=== PATIENT | male | born 1950 | race Two or more races ===

== ENCOUNTER 2019-07-26 14:24 | Inpatient (IN) | payer MEDICARE, OTHER ==
[~2019-07-26] VITALS: Ht 175.3 cm; Wt 93.9 kg
[2019-07-26 15:02] LABS: BASOPHILS % (AUTO) 0.4 % (0.0-2.0); EOSINOPHILS # (AUTO) 0.1 K/uL (0.0-0.7); EOSINOPHILS % (AUTO) 1.4 % (0.0-7.0); HEMATOCRIT 27.7 % (36.7-47.1); HEMOGLOBIN 9.2 g/dL (12.5-16.3); LYMPHOCYTES # (AUTO) 1.1 K/uL (20.0-40.0); LYMPHOCYTES % (AUTO) 17.4 % (20.5-51.5); MEAN CORPUSCULAR HEMOGLOBIN 30.9 uug (23.8-33.4); MEAN CORPUSCULAR HGB CONC 33 g/dL (32.5-36.3); MEAN CORPUSCULAR VOLUME 93.2 fL (73.0-96.2); MONOCYTES # (AUTO) 0.4 K/uL (2.0-10.0); MONOCYTES % (AUTO) 6.1 % (0.0-11.0); NEUTROPHILS # (AUTO) 4.6 K/uL (1.8-8.9); NEUTROPHILS % (AUTO) 74.7 % (38.5-71.5); PLATELET COUNT (AUTO) 158 K/uL (152-348); RED BLOOD CELL COUNT(AUTO) 2.97 MIL/uL (4.06-5.63); WHITE BLOOD COUNT (AUTO) 6.2 K/uL (3.6-10.2)
[2019-07-26 15:13] LABS: CREATININE 5.9 mg/dL (0.6-1.3); POTASSIUM 4.6 mmol/L (3.5-5.1)
[2019-07-26 15:25] LABS: BILIRUBIN,DIRECT 0.3 mg/dL (0.0-0.2); BILIRUBIN,TOTAL 0.6 mg/dL (0.2-1.0); TOTAL PROTEIN, SERUM 7.6 g/dL (6.4-8.2)
--- NOTE | 2019-07-26 18:14 | NUR ---
CARSON BULLARD AT BEDSIDE TO EVALUATE PT.
--- NOTE | 2019-07-26 18:48 | NUR ---
PT TRANSFERED TO [facility] IN STABLE CONDITION. PT REMAINED CALM THE WHOLE ER STAY. NO SIGN OF DISTRESS.
[2019-07-26 19:08] VITALS: BP 177/69
--- NOTE | 2019-07-26 19:26 | NUR ---
69 year old male received from er via gurney to room 307 for abdominal pain and pna.pt is axox4 .av shunt on right upper arm
--- NOTE | 2019-07-26 19:28 | NUR ---
md called for admission orders call light with in reach
[2019-07-26] MEDS ORDERED: Z GUARD REMEDY PASTE 57 GM TUBE TOP PRN (19:30)
[2019-07-26] MEDS ORDERED: DEXTROSE 50% 50 ML DISP.SYRIN IV PRN (19:30)
[2019-07-26] MEDS ORDERED: MAGNESIUM HYDROXIDE 30 ML LIQUID UDC PO PRN (19:30)
[2019-07-26] MEDS ORDERED: AZITHROMYCIN IV 500 MG in IV DEXTROSE 5% 250 ML IV SCH (20:00)
[2019-07-26] MEDS ORDERED: CEFTRIAXONE 1 G in IV DEXTROSE 5% 50 ML IV SCH (20:00)
[2019-07-26 20:16] VITALS: BP 164/55
[2019-07-26] MEDS ORDERED: diphenhydrAMINE 50 MG CAPSULE PO PRN (20:30)
[2019-07-26] MEDS: BLOOD SUGAR DIAGNOSTIC 1 EACH STRIP VI SCH (20:40)
[2019-07-26] MEDS ORDERED: GABAPENTIN 400 MG CAPSULE PO SCH (21:00)
[2019-07-26] MEDS ORDERED: PIPERACILLIN/TAZO 2.25 G in IV DEXTROSE 5% 50 ML IV ONE ×2 (21:15→23:00)
[2019-07-26] MEDS ORDERED: VANCOMYCIN IV 1,000 MG in IV DEXTROSE 5% 250 ML IV ONE (21:15)
[2019-07-26] MEDS ORDERED: VANCOMYCIN IV 200 ML ONE (21:22)
[2019-07-26] MEDS ORDERED: PIPERACILLIN/TAZOBACTAM/D5W 50 ML ONE (21:23)
[2019-07-26] MEDS ORDERED: INSULIN GLARGINE,HUM 300 UNITS/3 ML CARTRIDGE SQ ONE (21:23)
[2019-07-26] MEDS: INSULIN GLARGINE,HUM 300 UNITS/3 ML CARTRIDGE SQ SCH (21:34)
[2019-07-26] MEDS ORDERED: TRAZODONE 100 MG TABLET ONE (22:12)
[2019-07-26] MEDS ORDERED: GABAPENTIN 400 MG CAPSULE ONE (22:12)
[2019-07-26] MEDS ORDERED: LISINOPRIL 20 MG TABLET ONE (22:13)
[2019-07-26] MEDS ORDERED: ATORVASTATIN 20 MG TABLET ONE (22:13)
[2019-07-26] MEDS: LISINOPRIL 20 MG TABLET PO SCH (22:14)
[2019-07-26] MEDS: TRAZODONE 100 MG TABLET PO SCH (22:14)
[2019-07-26] MEDS: ATORVASTATIN 20 MG TABLET PO SCH (22:14)
[2019-07-27] MEDS ORDERED: LORAZEPAM 1 MG TABLET PO ONE (01:30)
[2019-07-27] MEDS ORDERED: LORAZEPAM 1 MG TABLET ONE (01:38)
[2019-07-27 05:16] VITALS: BP 106/40
[2019-07-27 06:34] LABS: BASOPHILS % (AUTO) 0.4 % (0.0-2.0); EOSINOPHILS # (AUTO) 0.1 K/uL (0.0-0.7); EOSINOPHILS % (AUTO) 1.1 % (0.0-7.0); HEMATOCRIT 25.6 % (36.7-47.1); HEMOGLOBIN 8.5 g/dL (12.5-16.3); LYMPHOCYTES # (AUTO) 0.5 K/uL (20.0-40.0); LYMPHOCYTES % (AUTO) 8.5 % (20.5-51.5); MEAN CORPUSCULAR HEMOGLOBIN 31.3 uug (23.8-33.4); MEAN CORPUSCULAR HGB CONC 33 g/dL (32.5-36.3); MONOCYTES # (AUTO) 0.3 K/uL (2.0-10.0); MONOCYTES % (AUTO) 5.3 % (0.0-11.0); NEUTROPHILS # (AUTO) 4.7 K/uL (1.8-8.9); NEUTROPHILS % (AUTO) 84.7 % (38.5-71.5); PLATELET COUNT (AUTO) 144 K/uL (152-348); RED BLOOD CELL COUNT(AUTO) 2.72 MIL/uL (4.06-5.63); WHITE BLOOD COUNT (AUTO) 5.6 K/uL (3.6-10.2)
[2019-07-27] MEDS: PANTOPRAZOLE SODIUM 40 MG TABLET.DR PO SCH (06:43)
[2019-07-27] MEDS: BLOOD SUGAR DIAGNOSTIC 1 EACH STRIP VI SCH ×4 (06:44→20:18)
[2019-07-27] MEDS: PIPERACILLIN/TAZO 2.25 G in IV DEXTROSE 5% 50 ML IV SCH ×3 (06:45→23:38)
[2019-07-27 06:48] LABS: CREATININE 6.7 mg/dL (0.6-1.3); MAGNESIUM 2.2 mg/dL (1.8-2.4); PHOSPHOROUS 6.7 mg/dL (2.5-4.9); POTASSIUM 3.9 mmol/L (3.5-5.1)
[2019-07-27 07:05] LABS: THYROID STIMULATING HORMONE 1.351 mIU/mL (0.358-3.740)
--- NOTE | 2019-07-27 08:00 | NUR ---
Received pt. resting in bed alert oriented x4 Lao and mongolian speaking. Pt. denies pain/ discomfort. Pt. denies SOB/ difficulty breathing. Pt. on tele monitor sinus rhythm. Pt. has IV on L hand 20 gauge intact patent saline lock. Pt. has AV shunt on R side. safety measures in place. call light within reach. will continue to monitor pt.
[2019-07-27] MEDS: DOCUSATE SODIUM 250 MG CAPSULE PO SCH ×2 (08:27→17:41)
[2019-07-27] MEDS: NIFEdipine XL 60 MG TABSR PO SCH (08:27)
[2019-07-27] MEDS: ATENOLOL 50 MG TABLET PO SCH (08:28)
[2019-07-27] MEDS: ASPIRIN 81 MG TAB.CHEW PO SCH (08:28)
[2019-07-27] MEDS: ACETAMINOPHEN 325 MG TABLET PO PRN ×2 (08:32→20:13)
[2019-07-27] MEDS ORDERED: CELECOXIB 200 MG CAPSULE PO SCH (09:00)
[2019-07-27] MEDS ORDERED: busPIRone 5 MG TABLET PO SCH (09:00)
[2019-07-27] MEDS ORDERED: ATENOLOL 100 MG TABLET PO SCH (09:00)
[2019-07-27] MEDS ORDERED: DULOXETINE 60 MG CAPSULE.DR PO SCH ×2 (09:00)
[2019-07-27] MEDS ORDERED: GABAPENTIN 400 MG CAPSULE PO SCH (09:00)
[2019-07-27] MEDS ORDERED: ALPRAZOLAM 0.5 MG TABLET PO SCH (09:00)
[2019-07-27] MEDS: CELECOXIB 200 MG CAPSULE PO SCH (09:52)
[2019-07-27] MEDS: ALPRAZOLAM 0.5 MG TABLET PO SCH ×2 (09:52→17:41)
--- NOTE | 2019-07-27 09:52 | NUR ---
CLINICAL PHARMACY NOTE: VANCOMYCIN DOSING S: To continue vancomycin dosing on 69 y/o male dialysis patient for HCAP O: height 175cm weight 84kg Temp 98.5 BUN 59 Scr 6.7 (on HD) WBC 5.6 Assessment/Plan patient received vanco 1gm IVPB x1 on 07/26 at 2130. No HD has been scheduled for today, thus, no vanco dose shall be due today. Will continue to dose by pre-HD random level. Will follow daily for dialysis schedule.
[2019-07-27] MEDS ORDERED: BISACODYL 10 MG SUPP.RECT RC ONE (10:15)
--- NOTE | 2019-07-27 10:51 | NUR ---
Pt. was able to have BM. Pt. refused a suppository because he just had a BM.
[2019-07-27] MEDS ORDERED: LIDOCAINE HCL 1% 20 ML VIAL IJ PRN (11:15)
[2019-07-27 11:42] VITALS: BP 114/75
[2019-07-27] MEDS: INSULIN REGULAR, HUMAN 300 UNIT/3 ML VIAL SQ PRN (12:48)
[2019-07-27 16:00] VITALS: BP 140/54
--- NOTE | 2019-07-27 19:24 | NUR ---
Did not see 1500 zosyn dose giving dose now. Pharmacy aware.
[2019-07-27 20:00] VITALS: BP 116/47
[2019-07-27] MEDS: TRAZODONE 100 MG TABLET PO SCH (20:13)
[2019-07-27] MEDS: ATORVASTATIN 20 MG TABLET PO SCH (20:13)
[2019-07-27] MEDS: LISINOPRIL 20 MG TABLET PO SCH (20:14)
[2019-07-27] MEDS: INSULIN GLARGINE,HUM 300 UNITS/3 ML CARTRIDGE SQ SCH (21:00)
[2019-07-27] MEDS ORDERED: INSULIN GLARGINE,HUM 300 UNITS/3 ML CARTRIDGE SQ SCH (21:30)
[2019-07-28] VITALS (7 sets, daily range): BP systolic 132–168; BP diastolic 38–66
[2019-07-28] MEDS: PIPERACILLIN/TAZO 2.25 G in IV DEXTROSE 5% 50 ML IV SCH ×3 (06:17→22:05)
[2019-07-28] MEDS: PANTOPRAZOLE SODIUM 40 MG TABLET.DR PO SCH (06:18)
[2019-07-28] MEDS: ACETAMINOPHEN 325 MG TABLET PO PRN (06:21)
[2019-07-28] MEDS: ALPRAZOLAM 0.5 MG TABLET PO SCH (06:21)
[2019-07-28] MEDS: BLOOD SUGAR DIAGNOSTIC 1 EACH STRIP VI SCH ×6 (06:25→20:47)
[2019-07-28 07:06] LABS: HEPATITIS B SURFACE AB Non Reactive (.); HEPATITIS B SURFACE AG Negative (Negative)
[2019-07-28 07:11] LABS: BASOPHILS % (AUTO) 0.5 % (0.0-2.0); EOSINOPHILS # (AUTO) 0.2 K/uL (0.0-0.7); EOSINOPHILS % (AUTO) 3.3 % (0.0-7.0); HEMATOCRIT 25.3 % (36.7-47.1); HEMOGLOBIN 8.4 g/dL (12.5-16.3); LYMPHOCYTES # (AUTO) 1.5 K/uL (20.0-40.0); MEAN CORPUSCULAR HEMOGLOBIN 31.4 uug (23.8-33.4); MEAN CORPUSCULAR HGB CONC 33 g/dL (32.5-36.3); MEAN CORPUSCULAR VOLUME 95.4 fL (73.0-96.2); MONOCYTES # (AUTO) 0.3 K/uL (2.0-10.0); MONOCYTES % (AUTO) 6.9 % (0.0-11.0); NEUTROPHILS # (AUTO) 2.6 K/uL (1.8-8.9); NEUTROPHILS % (AUTO) 57.3 % (38.5-71.5); PLATELET COUNT (AUTO) 137 K/uL (152-348); RED BLOOD CELL COUNT(AUTO) 2.66 MIL/uL (4.06-5.63); WHITE BLOOD COUNT (AUTO) 4.6 K/uL (3.6-10.2)
[2019-07-28 07:12] LABS: POTASSIUM 4.7 mmol/L (3.5-5.1)
[2019-07-28 07:22] LABS: CREATININE 7.5 mg/dL (0.6-1.3)
--- NOTE | 2019-07-28 07:33 | NUR ---
Pt rested well in between care; no acute distress; c/o pain and tylenol administered; repositioned; IV antibiotics administered; BS this am 69, apple juice given and recheck was 72; repeat blood sugar check using blood draw by wet process operator was 500+ and was rejected; repeat accucheck using peripheral blood then is 72; lab called for glucose of 350+; and lab suggested to re order another lab draw. continue to monitor; continue plan of care.
[2019-07-28] MEDS: ASPIRIN 81 MG TAB.CHEW PO SCH (08:33)
[2019-07-28] MEDS: ATENOLOL 50 MG TABLET PO SCH (08:33)
[2019-07-28] MEDS: NIFEdipine XL 60 MG TABSR PO SCH (08:33)
[2019-07-28] MEDS: DOCUSATE SODIUM 250 MG CAPSULE PO SCH ×2 (08:33→16:51)
[2019-07-28] MEDS: CELECOXIB 200 MG CAPSULE PO SCH (08:34)
--- NOTE | 2019-07-28 09:59 | NUR ---
CLINICAL PHARMACY NOTE: VANCOMYCIN DOSING S: To continue vancomycin dosing on 69 y/o male dialysis patient for HCAP O: height 175cm weight 84kg Temp 98.1 BUN 63 Scr 7.5 (on HD) WBC 4.6 Vanco pre-HD level on 07/28 with am labs: 16.7 Assessment/Plan HD has been scheduled for today. Since vanco pre-HD level is 16.7 mcg/ml, will give vanco 500mg IVPB x1 today post HD per protocol. Will continue to dose by pre-HD random level. Will follow daily for dialysis schedule.
[2019-07-28 10:39] LABS: POTASSIUM 5.4 mmol/L (3.5-5.1)
[2019-07-28 10:46] LABS: CREATININE 8.1 mg/dL (0.6-1.3)
[2019-07-28] MEDS: GABAPENTIN 100 MG CAPSULE PO SCH ×3 (11:57→16:51)
[2019-07-28] MEDS: LORAZEPAM 0.5 MG TABLET PO PRN ×2 (11:57→22:37)
[2019-07-28] MEDS: IV D5/ 0.9% NACL 1,000 ML IV PRN (11:59)
[2019-07-28] MEDS: METHADONE HCL 10 MG TABLET PO SCH ×2 (12:10→22:03)
--- NOTE | 2019-07-28 12:11 | NUR ---
1300 NEURONTIN NOT GIVEN FIRST MCCAIN GIVEN AT 1155
[2019-07-28] MEDS ORDERED: ALBUTEROL SULFATE 1.25 MG/3 ML NEBU NEB PRN (12:15)
[2019-07-28] MEDS: EPOETIN ALFA 10,000 UNITS/ML VIAL SQ SCH (15:10)
--- NOTE | 2019-07-28 16:00 | NUR ---
DR NANCE CAME IN FOR NEURO CONSULT. SEE NOTES. IV ACCIDENTALLY PULLED OUT BY PATIENT AND ATTEMPTED REINSERTION BUT TO NO AVAIL. MIDLINE INSERTION ORDERED.
--- NOTE | 2019-07-28 16:45 | NUR ---
BS 54, PATIENT AWAKE ALERT AND VERY COMBATIVE, CRANBERRY WITH SUGAR GIVEN PER PROTOCOL OBSERVED.
--- NOTE | 2019-07-28 17:30 | NUR ---
BS RECHECKED 60. PATIENT REMAINS AWAKE ALERT AND RESPONSIVE. WARM AND DRY SKIN WILL CONTINUE TO MONITOR SUGAR.
--- NOTE | 2019-07-28 19:52 | NUR ---
received in room awake ,dialysis is going on.call light with in reach
[2019-07-28] MEDS: ATORVASTATIN 20 MG TABLET PO SCH (20:39)
[2019-07-28] MEDS: TRAZODONE 100 MG TABLET PO SCH (20:40)
[2019-07-28] MEDS: INSULIN GLARGINE,HUM 300 UNITS/3 ML CARTRIDGE SQ SCH (20:41)
--- NOTE | 2019-07-28 21:14 | NUR ---
dialysis done 1500 out put removed
[2019-07-28] MEDS: LISINOPRIL 20 MG TABLET PO SCH (21:24)
[2019-07-28] MEDS ORDERED: VANCOMYCIN IV 500 MG in IV DEXTROSE 5% 100 ML IV ONE (22:00)
[2019-07-29 02:47] LABS: *BILIRUBIN,URIN NEGATIVE (NEGATIVE); *BLOOD, URINE NEGATIVE (NEGATIVE); *CLARITY,URINE CLEAR (CLEAR); *COLOR,URINE YELLOW (YELLOW); *KETONES,URINE NEGATIVE (NEGATIVE); *UROBILINOGEN,URINE 0.2 E.U./dl (NORMAL); LEUKOCYTE ESTERASE ,URINE NEGATIVE (NEGATIVE); NITRITE, URINE NEGATIVE (NEGATIVE); PH,URINE 8.5 (5.0-8.0); UGLUCOSE NEGATIVE (NEGATIVE)
[2019-07-29 03:03] LABS: BACTERIA,URINE NONE SEEN /HPF (NONE SEEN); RBC,URINE 0-3 /HPF (0-3); SQUAMOUS EPITHELIAL CELL,UR FEW /HPF (NONE SEEN)
[2019-07-29 03:50] VITALS: BP 152/40
[2019-07-29] MEDS: METHADONE HCL 10 MG TABLET PO SCH ×3 (05:02→21:02)
[2019-07-29 06:03] LABS: BILIRUBIN,TOTAL 0.6 mg/dL (0.2-1.0); CREATININE 6.2 mg/dL (0.6-1.3); MAGNESIUM 2.4 mg/dL (1.8-2.4); PHOSPHOROUS 5.7 mg/dL (2.5-4.9); TOTAL PROTEIN, SERUM 6.7 g/dL (6.4-8.2)
[2019-07-29] MEDS: PANTOPRAZOLE SODIUM 40 MG TABLET.DR PO SCH (06:10)
[2019-07-29] MEDS: PIPERACILLIN/TAZO 2.25 G in IV DEXTROSE 5% 50 ML IV SCH ×4 (06:12→22:46)
[2019-07-29 06:18] LABS: BASOPHILS % (AUTO) 0.6 % (0.0-2.0); EOSINOPHILS # (AUTO) 0.1 K/uL (0.0-0.7); EOSINOPHILS % (AUTO) 2.7 % (0.0-7.0); HEMOGLOBIN 7.7 g/dL (12.5-16.3); LYMPHOCYTES # (AUTO) 1.4 K/uL (20.0-40.0); LYMPHOCYTES % (AUTO) 32.2 % (20.5-51.5); MEAN CORPUSCULAR HEMOGLOBIN 31.7 uug (23.8-33.4); MEAN CORPUSCULAR HGB CONC 34 g/dL (32.5-36.3); MEAN CORPUSCULAR VOLUME 94.6 fL (73.0-96.2); MONOCYTES # (AUTO) 0.3 K/uL (2.0-10.0); NEUTROPHILS # (AUTO) 2.4 K/uL (1.8-8.9); NEUTROPHILS % (AUTO) 56.5 % (38.5-71.5); PLATELET COUNT (AUTO) 133 K/uL (152-348); WHITE BLOOD COUNT (AUTO) 4.2 K/uL (3.6-10.2)
[2019-07-29] MEDS: BLOOD SUGAR DIAGNOSTIC 1 EACH STRIP VI SCH ×4 (06:30→20:55)
[2019-07-29 06:36] LABS: RED BLOOD CELL COUNT(AUTO) 2.43 MIL/uL (4.06-5.63)
--- NOTE | 2019-07-29 08:00 | NUR ---
AWAKE ALERT AND VERBALLY RESPONSIVE NO SS OF ACUTE PAIN OR RESPIRATORY DISTRESS, 97% ON RA. . SR ON MONITOR
[2019-07-29] MEDS: GABAPENTIN 100 MG CAPSULE PO SCH ×3 (08:33→17:47)
[2019-07-29] MEDS: CELECOXIB 200 MG CAPSULE PO SCH (08:33)
[2019-07-29] MEDS: ASPIRIN 81 MG TAB.CHEW PO SCH (08:34)
[2019-07-29] MEDS: DOCUSATE SODIUM 250 MG CAPSULE PO SCH ×2 (08:34→17:46)
[2019-07-29] MEDS: LORAZEPAM 0.5 MG TABLET PO PRN (08:34)
[2019-07-29] MEDS: ATENOLOL 50 MG TABLET PO SCH (08:36)
[2019-07-29] MEDS: NIFEdipine XL 60 MG TABSR PO SCH (08:36)
[2019-07-29] MEDS: ONDANSETRON 4 MG/2 ML VIAL IV PRN (08:49)
[2019-07-29] MEDS: INSULIN REGULAR, HUMAN 300 UNIT/3 ML VIAL SQ PRN ×3 (08:58→20:56)
--- NOTE | 2019-07-29 10:44 | NUR ---
CLINICAL PHARMACY NOTE: VANCOMYCIN DOSING S: To continue vancomycin dosing on 69 y/o male dialysis patient for HCAP O: height 175cm weight 84kg Temp 98.9 BUN 45 Scr 6.2 (on HD) WBC 4.2 Vanco pre-HD level on 07/28 with am labs: 16.7 Assessment/Plan No HD has been scheduled for today, Thus, no dose shall be due today. Will continue to dose by pre-HD random level. Will follow daily for dialysis schedule.
[2019-07-29 11:26] VITALS: BP 151/52
--- NOTE | 2019-07-29 12:00 | NUR ---
STILL WITH EPISODES OF UNCONTROLLABLE FACIAL TWITCHING, MD AWARE. ASPIRATION PRECAUTION OBSERVED. CONTINUE CURRENT MEDICATION ORDERED. REMAINS SR ON MONITOR
[2019-07-29] MEDS: IV D5/ 0.9% NACL 1,000 ML IV PRN (13:46)
--- NOTE | 2019-07-29 15:08 | NUR ---
1500 zosyn not given patient is discharged
[2019-07-29 15:11] VITALS: BP 154/53
--- NOTE | 2019-07-29 18:53 | NUR ---
NO ACUTE CHANGE. SEEN BY DR GARCIA FOR FOLLOW-UP. HD IN AM
--- NOTE | 2019-07-29 19:30 | NUR ---
Received patient awake and alert in bed, with daughter at bedside. Patient noted with facial twitching. No acute distress noted. No complaints of pain or SOB. IVF running on the left upper arm midline. Safety measures initiated. Bed is low and locked, call light within reach. Will continue to monitor.
[2019-07-29] MEDS: ATORVASTATIN 20 MG TABLET PO SCH (20:50)
[2019-07-29] MEDS: LISINOPRIL 20 MG TABLET PO SCH (20:50)
[2019-07-29] MEDS: TRAZODONE 100 MG TABLET PO SCH (20:50)
[2019-07-29] MEDS: INSULIN GLARGINE,HUM 300 UNITS/3 ML CARTRIDGE SQ SCH (21:00)
[2019-07-30 00:46] VITALS: BP 149/48
[2019-07-30 04:00] VITALS: BP 155/55
[2019-07-30] MEDS: IV D5/ 0.9% NACL 1,000 ML IV PRN (05:42)
[2019-07-30] MEDS: PANTOPRAZOLE SODIUM 40 MG TABLET.DR PO SCH (06:09)
[2019-07-30] MEDS: METHADONE HCL 10 MG TABLET PO SCH ×3 (06:09→22:54)
[2019-07-30] MEDS: ONDANSETRON 4 MG/2 ML VIAL IV PRN ×2 (06:13→17:43)
[2019-07-30] MEDS: LORAZEPAM 0.5 MG TABLET PO PRN ×2 (06:32→17:52)
[2019-07-30] MEDS: PIPERACILLIN/TAZO 2.25 G in IV DEXTROSE 5% 50 ML IV SCH ×3 (06:32→22:56)
[2019-07-30] MEDS: BLOOD SUGAR DIAGNOSTIC 1 EACH STRIP VI SCH ×4 (06:36→21:00)
[2019-07-30 06:57] LABS: BASOPHILS # (AUTO) 0.1 K/uL (0.0-8.0); BASOPHILS % (AUTO) 0.9 % (0.0-2.0); EOSINOPHILS # (AUTO) 0.2 K/uL (0.0-0.7); EOSINOPHILS % (AUTO) 2.7 % (0.0-7.0); HEMATOCRIT 23.1 % (36.7-47.1); HEMOGLOBIN 7.6 g/dL (12.5-16.3); LYMPHOCYTES # (AUTO) 1.7 K/uL (20.0-40.0); LYMPHOCYTES % (AUTO) 28.8 % (20.5-51.5); MEAN CORPUSCULAR HEMOGLOBIN 31.3 uug (23.8-33.4); MEAN CORPUSCULAR HGB CONC 33 g/dL (32.5-36.3); MEAN CORPUSCULAR VOLUME 95.7 fL (73.0-96.2); MONOCYTES # (AUTO) 0.5 K/uL (2.0-10.0); MONOCYTES % (AUTO) 9.1 % (0.0-11.0); NEUTROPHILS # (AUTO) 3.4 K/uL (1.8-8.9); NEUTROPHILS % (AUTO) 58.5 % (38.5-71.5); PLATELET COUNT (AUTO) 133 K/uL (152-348); WHITE BLOOD COUNT (AUTO) 5.8 K/uL (3.6-10.2)
[2019-07-30 07:05] LABS: RED BLOOD CELL COUNT(AUTO) 2.42 MIL/uL (4.06-5.63)
[2019-07-30 07:15] LABS: CREATININE 7.2 mg/dL (0.6-1.3); MAGNESIUM 2.6 mg/dL (1.8-2.4); PHOSPHOROUS 7.4 mg/dL (2.5-4.9); POTASSIUM 5.7 mmol/L (3.5-5.1)
--- NOTE | 2019-07-30 08:00 | NUR ---
Awake, alert, oriented x 4. Not in distress. Tele SR
[2019-07-30] MEDS: ASPIRIN 81 MG TAB.CHEW PO SCH (09:37)
[2019-07-30] MEDS: CELECOXIB 200 MG CAPSULE PO SCH (09:37)
[2019-07-30] MEDS: DOCUSATE SODIUM 250 MG CAPSULE PO SCH ×2 (09:37→17:42)
[2019-07-30] MEDS: GABAPENTIN 100 MG CAPSULE PO SCH ×3 (09:37→17:42)
[2019-07-30 11:59] VITALS: BP 178/63
[2019-07-30] MEDS: INSULIN REGULAR, HUMAN 300 UNIT/3 ML VIAL SQ PRN ×2 (12:17→17:43)
--- NOTE | 2019-07-30 12:35 | NUR ---
CLINICAL PHARMACY NOTE: VANCOMYCIN DOSING S: To continue vancomycin dosing on 69 y/o male dialysis patient for HCAP O: height 175cm weight 84kg Temp 98.4 BUN 53 Scr 7.2 (on HD) WBC5.8 Vanco pre-HD level on 07/28 with am labs: 16.7 Vanco pre-HD level on 07/30 with am labs: 19.8 Assessment/Plan HD has been scheduled for today. Since vanco pre-HD level is below 20 mcg/ml, will give vanco 500mg IVPB x1 today post HD. Will continue to dose by pre-HD random level. Will follow daily for dialysis schedule.
[2019-07-30] MEDS: NIFEdipine XL 60 MG TABSR PO SCH (13:17)
[2019-07-30] MEDS: ACETAMINOPHEN 325 MG TABLET PO PRN (13:18)
--- NOTE | 2019-07-30 13:20 | NUR ---
Complained of generalized pain because of twitching. Tylenol given with Methadone due. Resting after. Discussed with Dr. Garvey regarding IVF and blood glucose. IVF and Lantus discontinued
[2019-07-30] MEDS: EPOETIN ALFA 10,000 UNITS/ML VIAL SQ SCH (14:12)
[2019-07-30] MEDS: ATENOLOL 50 MG TABLET PO SCH (14:12)
[2019-07-30 15:35] VITALS: BP 170/55
--- NOTE | 2019-07-30 18:00 | NUR ---
Patient vomited, Zofran IV given with relief. With intermittent twitching, Ativan given. Daughter at bedside.
--- NOTE | 2019-07-30 19:03 | NUR ---
Scheduled for hemodialysis. Vancomycin IV to be given after HD and CXR to be done after HD. Endorsed for further care
[2019-07-30 20:00] VITALS: BP 157/68
[2019-07-30] MEDS: TRAZODONE 100 MG TABLET PO SCH (22:53)
[2019-07-30] MEDS: LISINOPRIL 20 MG TABLET PO SCH (22:53)
[2019-07-30] MEDS: ATORVASTATIN 20 MG TABLET PO SCH (22:54)
[2019-07-30] MEDS ORDERED: VANCOMYCIN IV 500 MG in IV DEXTROSE 5% 100 ML IV ONE (23:30)
[2019-07-31] VITALS: BP 130/47
[2019-07-31 04:00] VITALS: BP 138/60
[2019-07-31] MEDS: METHADONE HCL 10 MG TABLET PO SCH ×2 (05:52→14:44)
[2019-07-31] MEDS: PIPERACILLIN/TAZO 2.25 G in IV DEXTROSE 5% 50 ML IV SCH ×2 (06:56→14:45)
[2019-07-31] MEDS: PANTOPRAZOLE SODIUM 40 MG TABLET.DR PO SCH (06:56)
[2019-07-31 07:14] LABS: BASOPHILS % (AUTO) 0.4 % (0.0-2.0); EOSINOPHILS # (AUTO) 0.1 K/uL (0.0-0.7); LYMPHOCYTES # (AUTO) 0.7 K/uL (20.0-40.0); LYMPHOCYTES % (AUTO) 8.8 % (20.5-51.5); MEAN CORPUSCULAR HEMOGLOBIN 31.9 uug (23.8-33.4); MEAN CORPUSCULAR HGB CONC 33 g/dL (32.5-36.3); MEAN CORPUSCULAR VOLUME 95.9 fL (73.0-96.2); MONOCYTES # (AUTO) 0.4 K/uL (2.0-10.0); MONOCYTES % (AUTO) 4.9 % (0.0-11.0); NEUTROPHILS # (AUTO) 7.2 K/uL (1.8-8.9); NEUTROPHILS % (AUTO) 84.9 % (38.5-71.5); PLATELET COUNT (AUTO) 129 K/uL (152-348); WHITE BLOOD COUNT (AUTO) 8.5 K/uL (3.6-10.2)
[2019-07-31 07:33] LABS: BILIRUBIN,TOTAL 0.7 mg/dL (0.2-1.0); CREATININE 6.3 mg/dL (0.6-1.3); MAGNESIUM 2.5 mg/dL (1.8-2.4); PHOSPHOROUS 6.3 mg/dL (2.5-4.9); POTASSIUM 4.9 mmol/L (3.5-5.1); TOTAL PROTEIN, SERUM 7.9 g/dL (6.4-8.2)
--- NOTE | 2019-07-31 08:00 | NUR ---
Awake, alert, oriented x 4, on moderate high back rest. O2 at 3L/NC. Tele SR
[2019-07-31] MEDS: BLOOD SUGAR DIAGNOSTIC 1 EACH STRIP VI SCH ×3 (08:58→17:52)
[2019-07-31] MEDS: ASPIRIN 81 MG TAB.CHEW PO SCH (08:59)
[2019-07-31] MEDS: CELECOXIB 200 MG CAPSULE PO SCH (09:00)
[2019-07-31] MEDS: DOCUSATE SODIUM 250 MG CAPSULE PO SCH ×2 (09:00→17:52)
[2019-07-31] MEDS: NIFEdipine XL 60 MG TABSR PO SCH (09:00)
[2019-07-31] MEDS: ATENOLOL 50 MG TABLET PO SCH (09:01)
[2019-07-31] MEDS: GABAPENTIN 100 MG CAPSULE PO SCH ×2 (09:06→12:34)
[2019-07-31] MEDS: LORAZEPAM 0.5 MG TABLET PO PRN (09:06)
[2019-07-31] MEDS: INSULIN REGULAR, HUMAN 300 UNIT/3 ML VIAL SQ PRN ×3 (09:09→17:54)
[2019-07-31 11:27] VITALS: BP 119/59
--- NOTE | 2019-07-31 13:35 | NUR ---
CLINICAL PHARMACY NOTE: VANCOMYCIN DOSING S: To continue vancomycin dosing on 69 y/o male dialysis patient for HCAP O: height 175cm weight 84kg Temp 98.4 BUN 53 Scr 7.2 (on HD) WBC5.8 Vanco pre-HD level on 07/28 with am labs: 16.7 Vanco pre-HD level on 07/30 with am labs: 19.8 Assessment/Plan HD has not been scheduled for today. No Vancomycin shall be given today anymore (last dose given today at 0104). Will continue to dose by pre-HD random level. Will follow daily for dialysis schedule.
[2019-07-31 16:23] VITALS: BP 148/64
[2019-07-31] MEDS ORDERED: DIVALPROEX 250 MG TABLET.DR PO SCH (17:00)
--- NOTE | 2019-07-31 18:52 | NUR ---
EEG done. With discharge order to SNF, facilitated with [facility]. Report given to Blanka. Midline intact to ERICK. Discharged per/gurney/ambulance in fair condition, with O2 at 3L/NC, afebrile.
== END 2019-07-31 18:50 | DRG 193 ==
LOC: ER 14:32 → TELE3 18:39 → MEDSURG3 07-31 11:04
PROVIDERS: ADMIT Internal Medicine; ATTEND Nurse Practitioner Acute Care
PROC: 5A1D70Z Performance of Urinary Filtration, Intermittent, Less than 6 Hours Per Day (ICD-10-PCS; principal; 2019-07-28)
PROC: 05HF33Z Insertion of Infusion Device into Left Cephalic Vein, Percutaneous Approach (ICD-10-PCS; 2019-07-28)
DX: J18.1 Lobar pneumonia, unspecified organism (principal); N18.6 End stage renal disease; J96.01 Acute respiratory failure with hypoxia; I13.2 Hypertensive heart and chronic kidney disease with heart failure and with stage 5 chronic kidney disease, or end stage renal disease; J44.0 Chronic obstructive pulmonary disease with (acute) lower respiratory infection; E11.22 Type 2 diabetes mellitus with diabetic chronic kidney disease; I50.9 Heart failure, unspecified; Z99.2 Dependence on renal dialysis; Z79.4 Long term (current) use of insulin; E11.42 Type 2 diabetes mellitus with diabetic polyneuropathy; K59.00 Constipation, unspecified; E78.5 Hyperlipidemia, unspecified; Z87.891 Personal history of nicotine dependence; D63.8 Anemia in other chronic diseases classified elsewhere; F41.9 Anxiety disorder, unspecified; J32.0 Chronic maxillary sinusitis; I70.0 Atherosclerosis of aorta; I67.2 Cerebral atherosclerosis; L89.629 Pressure ulcer of left heel, unspecified stage; Q63.1 Lobulated, fused and horseshoe kidney; M51.37 Other intervertebral disc degeneration, lumbosacral region; Z87.01 Personal history of pneumonia (recurrent); R25.3 Fasciculation; T50.905A Adverse effect of unspecified drugs, medicaments and biological substances, initial encounter; Y92.099 Unspecified place in other non-institutional residence as the place of occurrence of the external cause; E87.5 Hyperkalemia
CPT/HCPCS: 36415; 70030-TC; 70450; 71045; 83605; 83735; 84100; 84443; 85025; 85730; 86706; 87040; 87086; 87340; 87400; 90937; 93005; 93307; 93880; 95819; A4663; G0378; J0456; J0696; J0885; J1815; J2405; J2543; J3370; J3490; J7042; J7050; J7060; Q0163